=== PATIENT | male | born 1940 | race Caucasian/White ===

== ENCOUNTER → 2018-03-21 | Outpatient (CLI) | payer MEDICARE ==
[~2018-03-21] MED LIST: ASPEC325 PO; CLOP1TAB54 PO; DUTA0.5C PO; IRBE-37 PO; OMEP20CA59 PO
== END | disposition home or self-care (01) ==
LOC: C.PATHSPEC 16:55
PROVIDERS: ATTEND Dentist Endodontics
DX: K04.7 Periapical abscess without sinus (principal)

== ENCOUNTER 2024-06-11 10:48 | Inpatient (IN) ==
--- NOTE | 2024-06-11 11:15 | Emergency Department Note ---
Impression & Plan Cerebral edema, Glioblastoma, Acute left-sided weakness ED Provider Note NAME: KIMBERLY POPE AGE: 83 SEX: M : 1940 ARRIVES VIA: Ambulance INFORMANT: Patient, EMS ED PROVIDER(S): Tyron Robertson DO CHIEF COMPLAINT: Weakness HPI: The patient is an 83-year-old male who presented to the emergency department for an evaluation of weakness. The patient has a history of glioblastoma. He has had surgery in the past. Over the last few days the home occupational therapist as well as the patient's noticed that he has been having increasing weakness especially on the left side. The patient denies having any nausea or vomiting. He denies having any headache. His states that he cannot open up his left hand as well as he used to. The patient denies having any trauma. He does not take any blood thinners. He is currently not taking any steroids. ROS: See above HPI for pertinent positives & negatives. A total of 10 systems reviewed and were otherwise negative. PAST MEDICAL HISTORY: See Below PAST SURGICAL HISTORY: See Below FAMILY HISTORY: See Below SOCIAL HISTORY: See Below HOME MEDICATIONS: See Below ALLERGIES: See Below VITALS: See Below PHYSICAL EXAMINATION: GENERAL: The is awake to verbal commands. He is slow to answer questions and appears listless. EYES: The conjunctivae are clear. The pupils are round and reactive. EARS, NOSE, MOUTH AND THROAT: The nose is without any evidence of any deformity. Mucous membranes are dry. NECK: The neck is nontender and supple. RESPIRATORY: Normal respiratory effort is noted there is no evidence of wheezing rhonchi or rales CARDIOVASCULAR: Regular rate and rhythm noted there no murmurs rubs or gallops normal S1 normal S2. GASTROINTESTINAL: The abdomen is soft. Abdomen is nontender. MUSCULOSKELETAL/EXTREMITIES: There is no evidence of gross deformity full range of motion is noted in the hips and shoulders. SKIN: The skin is warm and dry. Trace pedal edema was noted bilaterally. NEUROLOGIC: Patient is awake to verbal commands. He is oriented to person place and time. There was a drift in the left upper extremity compared to the right. The patient is essentially flaccid in the left upper and left lower extremity. The patient has a left-sided facial droop with forehead sparing. Voice is soft but clear. MEDICAL DECISION MAKING: The patient is an 83-year-old male who has a history of glioblastoma who presented to the emergency department for weakness. The patient's had progressive left-sided weakness which is now worsened especially over the last 48 hours. The patient has not been on steroids recently. CT the brain was obtained and does appear to show cerebral edema associated with the patient's primary glioblastoma. I discussed the patient's laboratory and radiographic studies with him and his significant other. I discussed his condition with the on-call [facility]ist. I also discussed his case with his primary oncologist. At this time they feel the patient can be managed in our facility. He is not hypertensive. The patient was treated with IV steroids. He may require further radiation treatment. Triage Nursing notes reviewed. Prior medical records reviewed Vital Signs: reviewed and remarkable for no significant abnormalities Differential diagnosis: Infection, dehydration, metabolic abnormality, hypo/hyperglycemia, electrolyte disturbance, anemia, hypoxia, cardiac sources, intracerebral event, toxicologic, neurologic, as well as other pathologies. ER treatment provided: See below Diagnostics interpreted by me: ECG: EKG was obtained in the emergency department. My interpretation is normal sinus rhythm at 92 bpm. There is no ectopy. There is no acute ST segment abnormalities. This was compared to a tracing from April 23, 2024. No changes were noted. Cardiac Monitoring: An order was placed for continuous cardiac monitoring. The monitor shows a rate of 80 bpm with sinus rhythm. Laboratory studies: As stated above and show below. Imaging studies: See below. Radiographic imaging was reviewed by myself Consultation(s): I discussed this case with Dr. Jacobs [facility] I discussed this case with Dr. Love who is the patient's primary oncologist. Past Med/Surg History Problem List (Updated 06/11/24 @ 12:25 by Tyron Robertson DO) Acute left-sided weakness (Acute) Glioblastoma (Acute) Cerebral edema (Acute) Sensorineural hearing loss (SNHL) of both ears Encounter for pre-operative examination Medical History COVID-19 BPH (benign prostatic hyperplasia) Hearing deficit BL DEGROOT Transient global amnesia PER PT, REASON FOR PLAVIX HTN (hypertension) GERD (gastroesophageal reflux disease) Surgical History Hx of right cataract extraction History of colonoscopy W/ POLYPECTOMY History of tooth extraction History of tonsillectomy Family History Father Family hx of colon cancer Social History Smoking Status: Never smoker Second Hand Exposure: No; Do You Dip or Chew Tobacco: No; Hx Alcohol Use: Yes Alcohol type: beer, wine and hard liquor Hx Substance Use: No Preferred Language: Portuguese Communication Ability: Effective Grain Broker Required: No Beliefs That Will Affect Care: Hindu Current Living Situation: Spouse Feels Safe at Home: Yes Assistive Devices: Glasses and Hearing Aid - Bilateral Allergies Allergies Allergy/AdvReac Type Severity Reaction Status Date / Time Penicillins Allergy Unknown RASH Verified 05/19/24 09:45 Home Meds Home Medications Medication Instructions Recorded Confirmed dutasteride 0.5 mg capsule 0.5 mg PO QPM 01/10/19 05/12/24 vitamins A,C,B-innf-iboaqd 2,148 1 tab PO BID 01/10/19 05/12/24 mcg-113 mg-45 mg-17.4 mg tablet (PreserVision AREDS) levetiracetam 500 mg tablet 500 mg PO BID 04/25/24 04/25/24 (Keppra) melatonin 3 mg capsule 3 mg PO HS PRN 04/25/24 04/25/24 ondansetron 4 mg disintegrating 4 mg PO Q6H 04/25/24 04/25/24 tablet Results & Data (ED) Vital Signs Vital Signs - 24 hr 06/11/24 10:59 06/11/24 12:07 Temperature 37.5 C Temperature Source Oral Pulse Rate 91 H 80 Respiratory Rate 19 Respiratory Effort / Characteristics Non-Labored Spontaneous Respiratory Depth Normal Respiratory Pattern Regular Blood Pressure 132/84 Blood Pressure Mean 100 Pulse Oximetry 95 Oxygen Delivery Method Room Air Sepsis Recent Fever Within 48 Hours No Sepsis New/Unexplained Change in Mental Status N/A Sepsis Action Taken by Nursing No Action Required Home Medications Current Medication List: was personally reviewed by me Laboratory Data Attestation: I reviewed the patient's lab results. 06/11/24 11:00 06/11/24 11:00 Lab Results 11/06/24 11/06/24 11/06/24 Range/Units 11:00 11:05 11:40 WBC 9.39 (4.8-10.8) K/ul RBC 4.38 L (4.70-6.10) M/uL Hgb 13.8 L (14.0-18.0) g/dl Hct 40.1 L (42.0-52.0) % MCV 91.6 (80.0-100.0) fL MCH 31.5 (25.0-34.0) pg MCHC 34.4 (32.0-36.0) g/dL RDW Std Deviation 52.3 H (36.4-46.3) fL RDW Coeff of Ramiro 15.6 H (11.5-14.5) % Plt Count 265 (130-400) K/uL MPV 8.9 L (9.4-12.4) fL Immature Gran % (Auto) 0.9 % Neut % (Auto) 76.7 % Lymph % (Auto) 9.6 % Dukes % (Auto) 12.4 % Eos % (Auto) 0.1 % Baso % (Auto) 0.3 % Neut # (Auto) 7.21 H (1.40-6.50) K/uL Lymph # (Auto) 0.90 L (1.20-3.40) K/uL Dukes # (Auto) 1.16 H (0.11-0.59) K/uL Eos # (Auto) 0.01 (0.00-0.50) K/uL Baso # (Auto) 0.03 (0.00-0.20) K/uL Immature Gran # (Auto) 0.08 (0.01-0.20) K/uL PT 11.2 (9.0-12.0) Seconds INR 1.0 (0.9-1.1) APTT 29 (21-31) Seconds PTT Ratio 1.1 Sodium 137 (136-145) mmol/L Potassium 4.1 (3.5-5.1) mmol/L Chloride 102 (98-107) mmol/L Carbon Dioxide 27 (21-32) mmol/L Anion Gap 8 (3-11) BUN 10 (6-23) mg/dl Creatinine 0.88 (0.6-1.4) mg/dl Est Cr Clr Drug Dosing 63.7 ml/min eGFR 86.39 BUN/Creatinine Ratio 11.4 (10-20) Glucose 142 H (70-99(Fasting)) mg/dl Calcium 8.9 (8.6-10.3) mg/dl Magnesium 1.9 (1.7-2.4) mg/dl Total Bilirubin 0.8 (0.2-1.0) mg/dl AST 19 (13-39) U/L ALT 15 (7-52) U/L Alkaline Phosphatase 133 H (34-104) U/L Total Creatine Kinase 49 (30-223) U/L Troponin I High Sens 6.3 (0-20) pg/ml Total Protein 6.3 (6.0-8.3) gm/dl Albumin 3.8 (3.4-5.0) gm/dl Globulin 2.5 (2.5-4.0) gm/dl Albumin/Globulin Ratio 1.5 (0.9-2) TSH 1.692 (0.300-4.500) uIu/ml Random Cortisol 17.34 mcg/dl Urine Color Yellow Urine Appearance Clear (Clear) Urine pH 7.5 (4.5-7.5) Ur Specific [place] 1.016 (1.000-1.030) Urine Protein Trace H (Negative) Urine Glucose (UA) Negative (Negative) Urine Ketones Negative (Negative) Urine Blood Negative (Negative) Urine Nitrite Negative (Negative) Urine Bilirubin Negative (Negative) Urine Urobilinogen Positive H (Negative) Ur Leukocyte Esterase Trace H (Negative) Urine WBC (Auto) 0-5 (0-5) /hpf Urine RBC (Auto) 0-2 (0-2) /hpf U Hyaline Cast (Auto) 0-2 (0-2) /lpf U Epithel Cells (Auto) 0-2 (0-2) /hpf Urine Bacteria (Auto) None Seen (None Seen) SARS-CoV-2 (PCR) NEGATIVE (Negative) Influenza Type A (PCR) Negative (Neg) Influenza Type B (PCR) Negative (Neg) RSV (RT-PCR) Negative (Neg) Administered Medications Discontinued Medications Dexamethasone Sodium Phosphate (DexamethasonePf 10 Mg/Ml Vial) 10 mg IV NOW ONE Stop: 06/11/24 11:50 Last Admin: 06/11/24 11:53 Dose: 10 mg Documented By: [facility] Imaging Data Attestation: I personally reviewed and interpreted this imaging study as follows: My Impression: 1 view chest x-ray was obtained in the emergency department. My interpretation is no free air or definite infiltrate, final report below. Radiologist's Impression: Chest X-Ray 06/11/24 11:02 XR chest 1V portable HISTORY: 83 years-old Male weakness COMPARISON: 04/23/2024 TECHNIQUE: AP view of the chest FINDINGS: Cardiac silhouette is enlarged. No pneumothorax, pleural effusion or airspace consolidation. Bones appear grossly intact. IMPRESSION: No acute process ACT 112: Negative or not required by law. The above report was generated using voice recognition software. It may contain grammatical, syntax or spelling errors. Electronically signed by: Noah Guadarrama M.D. 06/11/2024 11:[address] 06/11/24 11:02 CT OF THE HEAD WITHOUT CONTRAST CLINICAL HISTORY: Altered mental status. Multifocal glioblastoma. COMPARISON STUDY: MRI of the brain March 18, 2024. Head CT April 23, 2024. CT DOSE: 625.8 mGy.cm TECHNIQUE: Helical axial images of the head were obtained without IV contrast. Automated exposure control was utilized for the study. A dose lowering technique was utilized adhering to the principles of ALARA. FINDINGS: No acute intracranial hemorrhage is present. A 3.3 x 2.1 cm oval- shaped hypodense focus within the right frontal lobe on image 22 of 32 favors a resection cavity. Edema within the right frontal lobe has increased in extent since CT of April 23, 2024. Mild mass effect with mild compression of the right lateral ventricle and minimal leftward midline shift is unchanged. The basal cisterns are patent. There is no evidence for herniation. A small hypodense focus within the left temporal lobe on image 18 of 32 has developed since prior CT. There are no findings to suggest acute dural sinus thrombosis or acute territorial infarct. Ventricular system is stable. There are no calvarial fractures. Right-sided craniotomy is unchanged in appearance. IMPRESSION: 1. No acute intracranial hemorrhage. 2. Status post right craniotomy with redemonstration of a right frontal resection cavity. Increase in right frontal lobe edema since prior head CT and interval development of hypodensity suggestive of vasogenic edema within the left temporal lobe. This interval change could represent disease progression however post treatment change could appear similar and continued imaging follow- up is recommended. No significant change in mass effect. ACT 112: Negative or not required by law. Electronically signed by: Pieter Calvo M.D. 06/11/2024 11:42 AM Discharge Plan Visit Data Chief Complaint: Testing Request Stated Complaint: TESTING REQUEST PER PCP ED Provider: Tyron Robertson Discharge Problem: Cerebral edema, Glioblastoma, Acute left-sided weakness Forms Stand Alone Forms: My [facility] [place] [employer] Prescriptions Prescriptions: No Action levetiracetam [Keppra] 500 mg tablet 500 mg PO BID melatonin 3 mg capsule 3 mg PO HS PRN ondansetron 4 mg tablet,disintegrating 4 mg PO Q6H dutasteride 0.5 mg Capsule 0.5 mg PO QPM PreserVision AREDS [id number] [id number] Tablet 1 tab PO BID Referrals Referrals: Robert Ortiz MD [Primary Care Provider] -
[2024-06-11 11:16] LABS: Basophils # (auto) 0.03 K/uL (0.00-0.20); Basophils % (auto) 0.3 %; Eosinophils # (auto) 0.01 K/uL (0.00-0.50); Eosinophils % (auto) 0.1 %; Hematocrit (blood only) 40.1 % (42.0-52.0); Hemoglobin 13.8 g/dl (14.0-18.0); Immature Granulocytes # (auto) 0.08 K/uL (0.01-0.20); Immature Granulocytes % (auto) 0.9 %; Lymphocytes % (auto) 9.6 %; Mean Corpuscular Hemoglobin 31.5 pg (25.0-34.0); Mean Corpuscular Hgb Conc 34.4 g/dL (32.0-36.0); Mean Corpuscular Volume 91.6 fL (80.0-100.0); Mean Platelet Volume 8.9 fL (9.4-12.4); Monocytes # (auto) 1.16 K/uL (0.11-0.59); Monocytes % (auto) 12.4 %; Neutrophils # (auto) 7.21 K/uL (1.40-6.50); Neutrophils % (auto) 76.7 %; Platelet Count 265 K/uL (130-400); RDW Coefficient of Variation 15.6 % (11.5-14.5); RDW Standard Deviation 52.3 fL (36.4-46.3); Red Blood Count 4.38 M/uL (4.70-6.10); White Blood Count 9.39 K/ul (4.8-10.8)
--- NOTE | 2024-06-11 11:28 | XRay Report ---
XR chest 1V portable HISTORY: 83 years-old Male weakness COMPARISON: 04/23/2024 TECHNIQUE: AP view of the chest FINDINGS: Cardiac silhouette is enlarged. No pneumothorax, pleural effusion or airspace consolidation. Bones ap pear grossly intact. IMPRESSION: No acute process ACT 112: Negative or not required by law. The above report was generated using voice recognition software. It may contain grammatical, syntax o r spelling errors. Electronically signed by: Noah Guadarrama M.D. 06/11/2024 11:26 AM
--- NOTE | 2024-06-11 11:45 | CT Scan Report ---
CT OF THE HEAD WITHOUT CONTRAST CLINICAL HISTORY: Altered mental status. Multifocal glioblastoma. COMPARISON STUDY: MRI of the brain March 18, 2024. Head CT April 23, 2024. CT DOSE: 625.8 mGy.cm TECHNIQUE: Helical axial images of the head were obtained without IV contrast. Automated exposure con trol was utilized for the study. A dose lowering technique was utilized adhering to the principles o f ALARA. FINDINGS: No acute intracranial hemorrhage is present. A 3.3 x 2.1 cm oval-shaped hypodense focus wit hin the right frontal lobe on image 22 of 32 favors a resection cavity. Edema within the right fronta l lobe has increased in extent since CT of April 23, 2024. Mild mass effect with mild compression of the right lateral ventricle and minimal leftward midline shift is unchanged. The basal cisterns a re patent. There is no evidence for herniation. A small hypodense focus within the left temporal lobe on image 18 of 32 has developed since prior CT. There are no findings to suggest acute dural sinus t hrombosis or acute territorial infarct. Ventricular system is stable. There are no calvarial fracture s. Right-sided craniotomy is unchanged in appearance. IMPRESSION: 1. No acute intracranial hemorrhage. 2. Status post right craniotomy with redemonstration of a right frontal resection cavity. Increase in right frontal lobe edema since prior head CT and interval development of hypodensity suggestive of v asogenic edema within the left temporal lobe. This interval change could represent disease progressio n however post treatment change could appear similar and continued imaging follow-up is recommended. No significant change in mass effect. ACT 112: Negative or not required by law. Electronically signed by: Pieter Calvo M.D. 06/11/2024 11:42 AM
[2024-06-11 11:46] LABS: Albumin Globulin Ratio 1.5 (0.9-2); Albumin Level 3.8 gm/dl (3.4-5.0); BUN Creatinine Ratio 11.4 (10-20); Bilirubin,Total 0.8 mg/dl (0.2-1.0); Calcium 8.9 mg/dl (8.6-10.3); Creatinine Clr Calc Pharmacy 63.7 ml/min; Globulin 2.5 gm/dl (2.5-4.0); Magnesium 1.9 mg/dl (1.7-2.4); Potassium 4.1 mmol/L (3.5-5.1); Total Protein 6.3 gm/dl (6.0-8.3)
[2024-06-11 11:49] LABS: Partial Thromboplastin Ratio 1.1; Partial Thromboplastin Time 29 Seconds (21-31); Prothrombin Time 11.2 Seconds (9.0-12.0)
[2024-06-11 11:52] LABS: Troponin I High Sensitivity 6.3 pg/ml (0-20)
[2024-06-11] MEDS: dexAMETHasone**PF** 10 MG/ML VIAL IV ONE (11:53)
[2024-06-11 11:59] LABS: Thyroid Stimulating Hormone 1.692 uIu/ml (0.300-4.500)
[2024-06-11 12:00] LABS: Influenza A virus by PCR Negative (Neg); Influenza B virus by PCR Negative (Neg); RSV by PCR Negative (Neg); SARS CoV2 RNA(COVID-19) Ceph NEGATIVE (Negative)
[2024-06-11 12:02] LABS: Appearance Urine Clear (Clear); Bacteria Urine Automated None Seen (None Seen); Bilirubin Urine Negative (Negative); Blood Urine Negative (Negative); Cast Urine Automated 0-2 /lpf (0-2); Color Urine Yellow; Epithelial Cell Urine Auto 0-2 /hpf (0-2); Glucose Urine UA Negative (Negative); Ketones Urine Negative (Negative); Leukocyte Esterase Urine Trace (Negative); Nitrite Urine Negative (Negative); Protein Urine Trace (Negative); RBC Urine Automated 0-2 /hpf (0-2); Specific Gravity Urine 1.016 (1.000-1.030); Urobilinogen Urine Positive (Negative); WBC Urine Automated 0-5 /hpf (0-5); pH Urine 7.5 (4.5-7.5)
--- NOTE | 2024-06-11 12:35 | History & Physical Report ---
Date of Service June 11, 2024 Assessment & Plan (1) Cerebral edema: Plan: History of Glioblastoma s/p right Frontal craniotomy for removal biopsy 04/03/24 S/p palliative radiation therapy completed 05/26/24 - CT on admission showed right frontal lobe edema and left temporal lobe vasogenic edema - ER doctor discussed with Dr. Garfield Love, patient's oncologist with [facility] recommended MRI and IV Decadron - MRI ordered - IV Decadron 10 mg daily - dysphagia screen ordered given weakness - monitor on telemetry (2) BPH (benign prostatic hyperplasia): Plan: possible component of neurogenic bladder as well - continue home medications - dutasteride and tamsulosin - bladder scan and straight cath prn if scan >350 mL (3) HTN (hypertension): Plan: Stable Currently not on any medications at home, recently d/c (4) Glioblastoma: Plan: see cerebral edema - palliative radiation treatment completed 05/26 - spoke with Dr. Dipak Love who stated patient will not be a candidate for further radiation at this time - continue Keppra Plan Chronic stable diagnoses: GERD - continue famotidine VTE ppx: Lovenox Q24h Diet: regular Code status: DNR/DNI Dispo: PCU/tele; PT/OT ordered to evaluate Admission and Anticipated Discharge Date Admission Date: 06/11/24 History of Present Illness Chief Complaint: weakness Primary Care Provider: Robert Ortiz MD Patient is an 83-year-old male with past medical history of glioblastoma s/p radiation and right frontal craniotomy, BPH, hypertension. Patient presents today due to left-sided weakness that has been ongoing for the past week. He also stated that he has had vision and a cough for the past few weeks. Patient's was seen with him at bedside. She provided most of his history as patient was tired. She stated that he had a brain biopsy 04/[address] Garfield Love at [facility], he has been doing well since the biopsy. He just finished radiation therapy 05/[address] Dipak Love from [facility]. About 1 week ago he started with left-sided weakness and it has progressively been getting worse since. Last night he was unable to ambulate by himself. She had to have a friend help him to the bedroom. She also stated that he has had some mild ankle swelling for the past few weeks. He has had home health with PT and OT weekly. he was to have an MRI on the . Patient denies fever, chills, headache, dizziness, lightheadedness, rhinorrhea, sore throat, dyspnea, dyspnea on exertion, chest pain, abdominal pain, nausea, vomiting, diarrhea, constipation, numbness, tingling. He lives at home with his . He does not smoke nicotine or drink alcohol. He denies past history of diabetes, VTE, clotting disorders, COPD, asthma, kidney disease. He does not use oxygen at baseline. He took all of his home medications this morning. He wishes to be DNR/DNI at this time. Allergies Allergy/AdvReac Type Severity Reaction Status Date / Time Penicillins Allergy Unknown RASH Verified 05/19/24 09:45 Home Medications Medication Instructions Recorded Confirmed Type dutasteride 0.5 mg capsule 0.5 mg PO QPM 01/10/19 06/11/24 History (Avodart) vitamins A,C,J-lnkw-iylsgg 2,148 1 tab PO BID 01/10/19 06/11/24 History mcg-113 mg-45 mg-17.4 mg tablet (PreserVision AREDS) levetiracetam 500 mg tablet 500 mg PO BID 04/25/24 06/11/24 History (Keppra) melatonin 3 mg capsule 3 mg PO HS PRN Sleep 04/25/24 06/11/24 History famotidine 20 mg tablet 20 mg PO BID 06/11/24 06/11/24 History tamsulosin 0.4 mg capsule 0.4 mg PO HS 06/11/24 06/11/24 History Past Med/Surg History Problem List (Updated 06/11/24 @ 12:59 by Cuca Barrett PA-C) BPH (benign prostatic hyperplasia) HTN (hypertension) Acute left-sided weakness (Acute) Glioblastoma (Acute) Cerebral edema (Acute) Sensorineural hearing loss (SNHL) of both ears Encounter for pre-operative examination Medical History COVID-19 BPH (benign prostatic hyperplasia) Hearing deficit BL DEGROOT Transient global amnesia PER PT, REASON FOR PLAVIX HTN (hypertension) GERD (gastroesophageal reflux disease) Surgical History Hx of right cataract extraction History of colonoscopy W/ POLYPECTOMY History of tooth extraction History of tonsillectomy Family History Father Family hx of colon cancer Social History Smoking Status: Never smoker Second Hand Exposure: No; Do You Dip or Chew Tobacco: No; Hx Alcohol Use: Yes Alcohol type: beer, wine and hard liquor Hx Substance Use: No Preferred Language: Jordanian Communication Ability: Effective Corporate Quality Assurance Manager Required: No Beliefs That Will Affect Care: Sabianism Current Living Situation: Spouse Feels Safe at Home: Yes Assistive Devices: Glasses and Hearing Aid - Bilateral Review of Systems Review of Systems: see HPI Physical Exam Physical Exam: The patient is tired, alert and oriented 3, well developed and well nourished, normocephalic and atraumatic, in no acute distress. Non-toxic appearing. HEENT- EOMI, mucous membranes moist. Hearing grossly intact. CN intact. Heart- normal S1 and S2. No murmurs, rubs or gallops. Lungs- clear bilaterally, no respiratory distress, no accessory muscle use. Abdomen- normal bowel sounds and soft. No ascites noted. Non-tender. MSK - 4/5 strength right extremities. 0/5 strength left extremities; unable to lift LE or UE. Sensation intact. Extremities- no clubbing, cyanosis. Mild edema of b/l ankles. Rheumatologic-decreased range of motion. Results & Data Results & Data Vital Signs (Past 12 Hours) Vital Signs Temp Pulse Resp BP Pulse Ox O2 Del Method 06/11/24 12:07 80 06/11/24 10:59 37.5 C 91 H 19 132/84 95 Room Air Code Status & VTE Plan Code Status DNR/DNI VTE Prophylaxis Plan VTE Prophylaxis will be ordered: Yes Supervising Physician Co-Signing Physician Notes Patient seen and examined, chart reviewed, case discussed with Cuca Hansen PA-C and I agree with the assessment and plan as above except as otherwise noted Labs and images reviewed 83-year-old male with a history of glioblastoma s/p craniotomy 03/2024 and palliative radiation completed 05/2024 presents with worsened left-sided deficits in the last 48 hours with a background gradual loss of strength. CT is with evidence of vasogenic edema? Whether this is related to his recent treatments. Case was discussed with [facility] Dr. Love in the ER, patient was recommended to follow-up with an MRI and to have steroids continued at this time. follows w Dr. William Ortiz [facility] and Dr. Love [facility] Oncology. No evidence of bleeding. At bedside visit patient has almost no activation of strength to left recruiting operations consultant, left elbow flexion, left shoulder flexion, left hip flexion, left ankle dorsiflexion/plantarflexion. 5/5 strength on the right although fatigues easily. Patient has had a history of polyuria for several weeks but denies dysuria or pain. UA does not appear infected, postvoid bladder scan has been ordered to evaluate for retention. No fevers or chills. Has had a cough for the last few days although no fever/chills. Quad screen was negative, expanded to [employer]. Differential includes worsened deficits from infectious causes, edema, CVA, and malignancy. MRI with and without contrast is ordered. Of note some confusion regarding patient's craniotomy. reports the patient has never had any type of skull or brain surgery just had a biopsy, clarified that a small portion of the skull was removed to perform the biopsy and imaging does show a right craniotomy.patient and his reports that they would be interested in hearing more about hospice services, but would like further investigation into underlying causes and imaging and further evaluation as note d. Agree with above. PG Care Time/CCT Total # of Minutes Spent Total Time Spent with Patient: Total time spent is greater than 50% in coordination of care (as documented) at patient's floor/unit and/or counseling patient: Coding Level of Care Code 35808 INT INP/OBS CARE 2/55MIN Diagnoses Cerebral edema G93.6 BPH (benign prostatic hyperplasia) N40.0 HTN (hypertension) I10 Glioblastoma C71.9
[2024-06-11 14:22] LABS: Adenovirus PCR Not Detected (NotDetected); Bordetella parapertussis PCR Not Detected (NotDetected); Bordetella pertussis PCR Not Detected (NotDetected); Chlamydia pneumoniae PCR Not Detected (NotDetected); Coronavirus 229E PCR Not Detected (NotDetected); Coronavirus CoV-2 (COVID19)PCR Not Detected (NotDetected); Coronavirus HKU1 PCR Not Detected (NotDetected); Coronavirus NL63 PCR Not Detected (NotDetected); Coronavirus OC43PCR Not Detected (NotDetected); Human Metapneumovirus PCR Not Detected (NotDetected); Influenza A PCR Not Detected (NotDetected); Influenza B PCR Not Detected (NotDetected); Mycoplasma pneumoniae PCR Not Detected (NotDetected); Parainfluenza Virus 1 PCR Not Detected (NotDetected); Parainfluenza Virus 2 PCR Not Detected (NotDetected); Parainfluenza Virus 3 PCR Not Detected (NotDetected); Parainfluenza Virus 4 PCR Not Detected (NotDetected); Respiratory Syncytial VirusPCR Not Detected (NotDetected); Rhinovirus/Enterovirus PCR Not Detected (NotDetected)
[2024-06-11] MEDS ORDERED: POLYETHYLENE (MIRALAX) 17 GM PACK PO PRN (14:44)
--- NOTE | 2024-06-11 15:41 | Electrocardiogram Report ---
Test Reason : Blood Pressure : */* mmHG Vent. Rate : 92 BPM Atrial Rate : 92 BPM P-R Int : 148 ms QRS Dur : 80 ms QT Int : 340 ms P-R-T Axes : 15 12 54 degrees QTcB Int : 420 ms Poor data quality, interpretation may be adversely affected Normal sinus rhythm Poor R wave progression, consider anterior IL vs. lead placement vs. LVH Abnormal ECG When compared with ECG of 23-Apr-2024 10:21, No significant change was found Confirmed by Tyron Gipson ([id number]) on 06/11/2024 3:40:43 PM Referred By: Garfield Love Confirmed By: Tyron Gipson
[2024-06-11] MEDS: GADOBUTROL 65ML VIAL IV ONE (15:52)
[2024-06-11] MEDS: ENOXAPARIN INJ 40 MG/0.4 ML SYR SQ SCH (17:52)
[2024-06-11] MEDS: FINASTERIDE 5 MG TAB PO SCH (20:50)
[2024-06-11] MEDS: TAMSULOSIN HCL 0.4 MG CAP PO SCH (20:50)
[2024-06-11] MEDS: FAMOTIDINE 20 MG TAB PO SCH (20:51)
[2024-06-11] MEDS: levETIRAcetam 500 MG TAB PO SCH (20:51)
--- NOTE | 2024-06-11 21:06 | Magnetic Resonance Report ---
MRI BRAIN WITH and WITHOUT CONTRAST TECHNIQUE: An MRI examination of the brain was performed utilizing sagittal and axial T1-weighted images as well as axial T2-weighted, FLAIR, gradient echo and diffusion-weighted images. Postcontrast T1-weighted images were also acquired in axial and sagittal planes. IV CONTRAST: 7.5 mL of Gadobuterol was intravenously administered. INDICATION: Headaches COMPARISON: CT brain April 23, 2024 FINDINGS: Centered in the right frontal lobe, there is a predominantly peripherally and heterogeneously enhancing intra-axial mass measuring up to 5.6 x 5.0 x 5.9 cm (AP x TV x CC) with medial extension across the midline to the left cerebral hemisphere frontal lobe. There is a small enhancing mass in the left frontal white matter just superiorly to the anterior horn of the left lateral ventricle measuring 1.5 cm which may represent medial extension of the dominant mass. Just posterolaterally to this dominant mass, there is a 1.4 cm peripherally enhancing lesion in the posterior right frontal lobe. There is diffusion restriction to this dominant mass. Also small component of intrinsically T1 hyperintense material and the susceptibility artifact noted There is an additional peripherally enhancing lesion in the left frontal operculum measuring 1.7 cm. There is appreciable vasogenic edema surrounding this finding with associate mass effect characterized by 1.0 cm leftward shifting of the midline structures. Partially effacement of the right lateral ventricle Prior right frontal craniotomy changes. The cerebellar tonsils are normal in position. The pituitary gland is not enlarged. The major arterial vascular structures of the skull base are patent. No intraorbital soft tissue mass lesion is observed. Cataract surgeries the visualized paranasal sinuses and mastoids are predominantly aerated. IMPRESSION: Large intra-axial mass centered in the right frontal lobe with aggressive features including appreciable vasogenic edema, predominantly peripheral and heterogeneous enhancement with suggested central necrosis and internal hemorrhage with crossing of the midline into the contralateral left frontal cerebrum. Additional lesions detected posterolaterally within the right frontal lobe and in the left frontal operculum as above. There is diffusion restriction to this dominant mass which suggests high cellularity. Superimposed infection/abscess not entirely excluded in the right clinical context. Please correlate with histological results however consideration may include glioblastoma multiforme. Less likely considerations may include a lymphoma as well as metastasis. Electronically signed by Rohan Espinoza 06-11-2024 4:45 PM
--- OUTSIDE RECORDS SUMMARY | 2024-06-11 21:21 | External Medical Summary | Continuity of Care Document ---
Author Name Unknown Organization [address] Address [address] [place] [phone] Care Team Providers Care Emergency Veterinary Technician Name Role Phone Robert Ortiz Primary Care Physician [phone] [id number] Date(s): 05/26/24 - 05/26/[address] [facility] [address] [facility], [address] [place] [address] [phone] Encounter Diagnosis Edema leg(Discharge Diagnosis) - 05/26/24 Encounter for medication review(Discharge Diagnosis) - 05/26/24 Glioblastoma(Discharge Diagnosis) - 05/26/24 BPH associated with nocturia(Discharge Diagnosis) - 05/26/24 Incontinence(Discharge Diagnosis) - 05/26/24 Discharge Disposition: Home or Self Care Attending Physician: Carie Jett DO, Mariana Annette Referring Physician: MD Ortiz Michael P Allergies, Adverse Reactions, Alerts Substance Criticality Severity Reaction Reaction Severity Status penicillins unknown Active Assessment and Plan Extracted from: Title:TeleHealth Visit Note Author:Cooper Jett DO, Mariana Annette Date:05/26/24 1.Edema leg Likely dependent edema, although unable to perform exam Advised compression and elevation of legs, walking as much as tolerated. 2.BPH associated with nocturia Not al goal Continue dutasteride, trial of flomax0.4mg daily, advised to monitor BP and for lightheadedness. Requests urology referral and this was placed 3.Incontinence as above 4.Encounter for medication review Current medications are appropriate and medication list reconciled Since he is mainly on a palliative course now, would likely keep him off plavixat this time. BP is being monitored by home nurse, if it starts rising advised to let us know. 5.Glioblastoma He is done with palliative radiation, management per oncology. Immunizations Given and Recorded Vaccine Date Status Refusal Reason SARS-CoV-2 mRNA (Pfizer 12+) bivalent 05/21/23 Rec orded RSV Vaccine Unspecified 05/14/23 Recorded influenza virus vaccine, inactivated 05/07/23 Austen rded influenza virus vaccine, inactivated 05/12/22 Give n influenza virus vaccine, inactivated 04/28/21 Give n influenza virus vaccine, inactivated 04/23/20 Give n influenza virus vaccine, inactivated 05/01/19 Give n influenza virus vaccine, inactivated 05/13/18 Give n influenza virus vaccine, inactivated 05/21/17 Give n influenza virus vaccine, inactivated 05/12/16 Give n influenza virus vaccine, inactivated 05/24/15 Give n influenza virus vaccine, inactivated 04/29/14 Give n influenza virus vaccine, inactivated 05/28/13 Give n influenza virus vaccine, inactivated 06/17/12 Give n SARS-CoV-2 mRNA-1273 (6y+ bivalent) 1 01/04/23 Rec orded SARS-CoV-2 mRNA-1273 (6y+ bivalent) 2 04/17/22 Rec orded SARS-CoV-2 (COVID-19) mRNA-1273 vaccine 11/04/21 R ecorded SARS-CoV-2 (COVID-19) mRNA-1273 vaccine 06/10/21 R ecorded SARS-CoV-2 (COVID-19) mRNA-1273 vaccine 3 10/03/20 Recorded SARS-CoV-2 (COVID-19) mRNA-1273 vaccine 4 08/29/20 Recorded zoster vaccine, inactivated 01/17/19 Recorded zoster vaccine, inactivated 10/31/18 Recorded zoster vaccine, inactivated 5 10/31/18 Recorded hepatitis A adult vaccine 07/02/18 Given hepatitis A adult vaccine 12/17/13 Given tetanus/diphtheria/pertuss, acel (Tdap) 07/02/18 G iven tetanus/diphtheria/pertuss, acel (Tdap) 03/22/12 G iven pneumococcal 13-valent vaccine 06/09/15 Given pneumococcal 23-valent vaccine 06/18/13 Given zoster vaccine live 08/06/09 Recorded 1Result Comment: 2023-04-30: Historical information-source unspecified 2Result Comment: 2022-05-31: Historical information-source unspecified 3Result Comment: 2020-12-02: Historical information-source unspecified 4Result Comment: 2020-12-02: Historical information-source unspecified 5Result Comment: 2019-01-17: Historical information-source unspecified Medications dutasteride 0.5 mg oral capsule Start: 07/25/23 4:11:00 PM EST, See Instructions, Disp# 90 cap, Refills: 3, TAKE ONE CAPSULE BY MOUTH EVERY DAY, Pharmacy: [facility] Start Date: 07/25/23 Status: Ordered famotidine 20 mg oral tablet Start: 04/14/24 10:42:00 AM EDT, 28 tab, 0 Refill(s) Start Date: 04/14/24 Status: Ordered Flomax 0.4 mg oral capsule Start: 05/26/24 1:26:00 PM EDT, 1 cap, PO, Daily, Disp# 30 cap, at bedtime, Pharmacy: [facility] Start Date: 05/26/24 Status: Ordered levETIRAcetam 500 mg oral tablet Start: 04/14/24 10:42:00 AM EDT, 60 tab, 0 Refill(s) Start Date: 04/14/24 Status: Ordered melatonin 3 mg oral tablet Start: 04/14/24 10:43:00 AM EDT, 1 tab, PO, qhs, PRN: Insomnia Start Date: 04/14/24 Status: Ordered PreserVision AREDS 2 oral capsule Start: 03/01/20 3:17:00 PM EDT, 1 cap, PO, Daily Start Date: 03/01/20 Status: Ordered Problem List Condition Confirmation Course Effective Dates Status Health atus Informant Patient has active power of cook specialty foreign food for health care Confirmed Active Serrated adenoma of colon Confirmed Active Generalized weakness Confirmed Active Basal cell carcinoma 1 Confirmed Active Arthritis of both feet Confirmed Active Tailor's bunion of both feet Confirmed Active BPH Confirmed Active Callus Confirmed Active Fear of flying Confirmed Active Glioblastoma Confirmed Active Global amnesia Confirmed Active Hearing impairment Confirmed Active Hypertension Confirmed Active Incontinence Confirmed Active BPH associated with nocturia Confirmed Active Dry skin Confirmed Active 1nasal tip Diagnosis Diagnosis Type Effective Dates Health Status Clinical Service Informant Incontinence Discharge Diagnosis 05/26/24 Non-Specified BPH associated with nocturia Discharge Diagnosis 05/26/24 Non-Specified Edema leg Discharge Diagnosis 05/26/24 Non-Specified Encounter for medication review Discharge Diagnosis 05/26/24 Non-Specified Glioblastoma Discharge Diagnosis 05/26/24 Non-Specified Procedures Procedure Date Related Diagnosis Body Site Status Colonoscopy 1, 2 09/12/23 Complete d Mohs micrographic surgery 12/26/22 Completed Shave biopsy 11/08/22 Completed Cataract surgery 2018 Comple maciej Colonoscopy 2012 Completed 1- Diverticulosis in the sigmoid colon and in the descending colon. - The examination was otherwise normal. - No specimens collected. 2- No repeat colonoscopy due to age. 3bilateral cataract surgery 4Repeat in 5 years Social History Social History Type Response Tobacco Former smoker, Cigar ettes 1 Smoking Status Never smoked cigaret areli Sex Male Sex Representation Male (finding) 1Quit smoking 41 years ago. [facility] Outpt Note * Carie Jett DO, Mariana Annette: PERFORM Event Display: [facility] Outpt Note Authored Date: [id number] TeleHealth Visit Note I have confirmed the patients name and date of . The patient has consented to this service,and I have advised the patient that this is a billable visit for which they may be subject to a copay. The patient initiated this visit after they were informed of the availability of TeleHealth for this medically necessary visit. I am located at my office. The patient is located at home. This visit was conducted via live audio/video technology via [employer]. History of Present Illness Presents via telehealth to discuss some questions He is undergoing palliative radiation treatment for glioblastoma He is very sleepy and prefers for his Ashlyn to speak with me Wants to review medications - no longer on dexamethasone, alprazolam, cipro, plavix, hydroxyzine, miconazole, mirtazapine, zofran, senna - stopped irbesartan due to hypotension (BP this AM 118/70) - plavixwas stopped prior to brain biopsy and not re-started(No hx ofCAD or CVA so it is reasonable to keep him off, possible remote hx of TIA?/global amnesia) - he is onlyon dutasteride, famotidine, keppra, melatonin, AREDS Swollen ankles - walks around the house, trying to take outside walks - wondering if she should raise his feet more Incontinent at night - worsened over the past month - has been on dutasteride for the past 2 months w/o improvement - states he's up all night going to the bathroom, and sometimes does not make it, wears depends Physical Exam General: _Alert and oriented, No acute distress, somnolent Psych: Mood-affect congruence. Speech is of normal pace and content Assessment/Plan 1.Edema leg Likely dependent edema, although unable to perform exam Advised compression and elevation of legs, walking as much as tolerated. 2.BPH associated with nocturia Not al goal Continue dutasteride, trial of flomax0.4mg daily, advised to monitor BP and for lightheadedness. Requests urology referral and this was placed 3.Incontinence as above 4.Encounter for medication review Current medications are appropriate and medication list reconciled Since he is mainly on a palliative course now, would likely keep him off plavixat this time. BP is being monitored by home nurse, if it starts rising advised to let us know. 5.Glioblastoma He is done with palliative radiation, management per oncology. Attestation Time spent: Pre-visit planning: _8 [id number] visit: _25 Post-visit (orders/documentation/coordination of care):5 Total visit time: _38 Problem List/Past Medical History Ongoing Arthritis of both feet Basal cell carcinoma BPH BPH associated with nocturia Callus Dry skin Fear of flying Generalized weakness Glioblastoma Global amnesia Hearing impairment Hypertension Incontinence Patient has active power of cook specialty foreign food for health care Serrated adenoma of colon Tailor's bunion of both feet Resolved Annual physical exam Benign essential HTN Colonoscopy Folliculitis Seborrheic keratoses Tick bite of neck Zoster vaccine Procedure/Surgical History Colonoscopy| Service Date: 09/12/2023Mohs micrographic surgery| Service Date: 12/26/2022Shave biopsy| Service Date: 11/08/2022ataract surgery| Service Date: 2018Colonoscopy| Service Date: 2012 Medications dutasteride(dutasteride 0.5 mg oral capsule), See Instructions, 3 refills famotidine(famotidine 20 mg oral tablet) levETIRAcetam(levETIRAcetam 500 mg oral tablet) melatonin(melatonin 3 mg oral tablet), 3 mg= 1 tab, PO, qhs, PRN multivitamin with minerals(PreserVision AREDS 2 oral capsule), 1 cap, PO, Daily tamsulosin(Flomax 0.4 mg oral capsule), 0.4 mg= 1 cap, PO, Daily Allergies penicillinsunknown Social History Smoking Status Never smoked cigarettes Exercise - Regular exercise Times per week:Daily - Comments: Gym 4 days a week and walks dog 4-5 miles every day Home/Environment Lives with:Spouse Other risks in environment:Pets/Animal exposure - Comments: Single family home Substance Abuse - Denies Substance Abuse Tobacco Use:Former smoker Type:Cigarettes - Comments: Quit smoking 41 years ago. Family History Cancer of colon: Father. Hypertension: Mother. Health Status Family Member(s) Family Member(s) Relationship: Father, Age: 101 Years Relationship: Mother, Age: Unknown Immunizations Vaccine Date Status SARS-CoV-2 mRNA (Pfizer 12+) bivalent 05/21/2023 Recorded RSV Vaccine Unspecified 05/14/2023 Recorded influenza virus vaccine, inactivated 05/07/2023 Recorded SARS-CoV-2 mRNA-1273 (6y+ bivalent) 01/04/2023 Recorded Comments : 2023-04-30: Historical information-source unspecified influenza virus vaccine, inactivated 05/12/2022 Given SARS-CoV-2 mRNA-1273 (6y+ bivalent) 04/17/2022 Recorded Comments : 2022-05-31: Historical information-source unspecified SARS-CoV-2 (COVID-19) mRNA-1273 vaccine 11/04/2021 Recorded SARS-CoV-2 (COVID-19) mRNA-1273 vaccine 06/10/2021 Recorded influenza virus vaccine, inactivated 04/28/2021 Given SARS-CoV-2 (COVID-19) mRNA-1273 vaccine 10/03/2020 Recorded Comments : 2020-12-02: Historical information-source unspecified SARS-CoV-2 (COVID-19) mRNA-1273 vaccine 08/29/2020 Recorded Comments : 2020-12-02: Historical information-source unspecified influenza virus vaccine, inactivated 04/23/2020 Given influenza virus vaccine, inactivated 05/01/2019 Given zoster vaccine, inactivated 01/17/2019 Recorded zoster vaccine, inactivated 10/31/2018 Recorded zoster vaccine, inactivated 10/31/2018 Recorded Comments : 2019-01-17: Historical information-source unspecified hepatitis A adult vaccine 07/02/2018 Given tetanus/diphtheria/pertuss, acel (Tdap) 07/02/2018 Given influenza virus vaccine, inactivated 05/13/2018 Given influenza virus vaccine, inactivated 05/21/2017 Given influenza virus vaccine, inactivated 05/12/2016 Given pneumococcal 13-valent vaccine 06/09/2015 Given influenza virus vaccine, inactivated 05/24/2015 Given influenza virus vaccine, inactivated 04/29/2014 Given hepatitis A adult vaccine 12/17/2013 Given pneumococcal 23-valent vaccine 06/18/2013 Given influenza virus vaccine, inactivated 05/28/2013 Given influenza virus vaccine, inactivated 06/17/2012 Given tetanus/diphtheria/pertuss, acel (Tdap) 03/22/2012 Given tetanus/diphtheria/pertuss, acel (Tdap) - Not Given Comments : Medication Not Available zoster vaccine live 2009 Recorded Recommendations Health Maintenance Pending(in the next year) OverDue Medicare Annual Wellness Visit due05/31/23and every 1year Adult Influenza Vaccine due02/03/24and every 1year Due Adult Social Determinants of Health Screening due05/26/24Unknown Frequency Due In Future Body Mass Index not due until04/30/25and every 366day Satisfied(in the past 1 year) Satisfied Body Mass Index on04/29/24.Satisfied by JELENA Harper Kathryn Electronic Signature on File Electronically Reviewed/Signed by: Ashlee Jett DO Author Signature Dt/Tm:05/26/2024 01:49 PM Department of Family Medicine MAF Patient Care team information Care Team Personnel Name: MD Angel, Robert Butts Position: Physician - Internal Med Member Role: Primary Care Provider Address: [address] [facility] [address] [place] [address] [place] Name: Cody Lindquist MD, Otis Position: Resident Member Role: Lifetime Relationship Address: [address] [facility] [address] [place] [address] Care Team Related Persons Name: ASHLYN ESPANA"
--- OUTSIDE RECORDS SUMMARY | 2024-06-11 21:21 | External Medical Summary | Continuity of Care Document ---
Author Name Unknown Organization [address] Address [address] [place] [address] [place], [place] [phone] Care Team Providers Care Insurance Counselor Name Role Phone AngelRobert wilson Benjamín Primary Care Physician [phone] Encounter [facility] [id number] Date(s): 05/15/24 - 05/15/[address] [place] [facility] [address] [facility], [address] [place] [address] [phone] Encounter Diagnosis Hypertension(Discharge Diagnosis) - 05/15/24 Discharge Disposition: Home or Self Care Attending Physician: DO Toure Franklin J Referring Physician: DO Toure Franklin J Allergies, Adverse Reactions, Alerts Substance Criticality Severity Reaction Reaction Severity Status penicillins unknown Active Assessment and Plan Extracted from: Title:Office Visit Note Author:DO Gonzalez Clair e S Date:05/15/24 1.Hypertension Chronic condition not at goal/exacerbated/progressive/side effects of treatment Goal: Resolve hypotension Data: _ Plan: Plan to continue to hold irbesartan. Will f/u with blood pressure readings next week. If significantly elevated prior to that will call office sooner. If elevated consider re-started irbesartan, perhaps as a lower dose. Immunizations Given and Recorded Vaccine Date Status [...] 5Result Comment: 2019-01-17: Historical information-source unspecified Medications ALPRAZolam 0.5 mg oral tablet, disintegrating Start: 02/29/24 3:34:00 PM EDT, 0.5 tab, PO, Daily, Disp# 30 tab, Refills: 0, PRN: anxiety, [facility] Start Date: 02/29/24 Status: Ordered ciprofloxacin Start: 04/29/24 2:43:00 PM EDT, 500, PO, bid Start Date: 04/29/24 Status: Ordered clopidogrel 75 mg oral tablet Start: 04/24/23 2:03:00 PM EDT, 1 tab, PO, Daily, Disp# 90 tab, Refills: 3, Pharmacy: [facility] Start Date: 04/24/23 Status: Ordered dexAMETHasone 2 mg oral tablet Start: 04/14/24 10:41:00 AM EDT, 40 tab, 0 Refill(s) Start Date: 04/14/24 Status: Ordered dexAMETHasone 2 mg oral tablet Start: 04/29/24 3:31:00 PM EDT, See Instructions, Disp# 40 tab, Take 2 tablets by mouth twice a day for 4 days, then 1 tablet three times per day for 4 days, the 1 tablets two times per day for 4 days, then stop, Pharmacy: [facility]/pharmacy #[id number] Start Date: 04/29/24 Status: Ordered dexAMETHasone 4 mg oral tablet Start: 03/24/24 1:49:00 PM EDT, 1 tab Start Date: 03/24/24 Status: Ordered dutasteride 0.5 mg oral capsule Start: 07/25/23 4:11:00 PM EST, See Instructions, Disp# 90 cap, Refills: 3, TAKE ONE CAPSULE BY MOUTH EVERY DAY, Pharmacy: [facility] Start Date: 07/25/23 Status: Ordered famotidine 20 mg oral tablet Start: 04/14/24 10:42:00 AM EDT, 28 tab, 0 Refill(s) Start Date: 04/14/24 Status: Ordered hydrOXYzine hydrochloride 25 mg oral tablet Start: 04/17/24 1:39:00 PM EDT, 1 tab, PO, qhs, Disp# 30 tab, Refills: 3, PRN: sleep, Pharmacy: [id number] Start Date: 04/17/24 Stop Date: 08/15/24 Status: Ordered irbesartan 300 mg oral tablet Start: 04/24/23 2:03:00 PM EDT, 1 tab, PO, Daily, Disp# 90 tab, Refills: 3, Pharmacy: [facility] Start Date: 04/24/23 Status: Ordered levETIRAcetam 500 mg oral tablet Start: 04/14/24 10:42:00 AM EDT, 60 tab, 0 Refill(s) Start Date: 04/14/24 Status: Ordered melatonin 3 mg oral tablet Start: 04/14/24 10:43:00 AM EDT, 1 tab, PO, qhs, PRN: Insomnia Start Date: 04/14/24 Status: Ordered miconazole 2% topical cream Start: 11/30/21 11:31:00 AM EDT, 1 appl, topical, bid, Disp# 30 g, Refills: 1, Pharmacy: [facility] Start Date: 11/30/21 Stop Date: 12/14/21 Status: Ordered mirtazapine 7.5 mg oral tablet Start: 03/24/24 1:48:00 PM EDT, 1 tab, PO, qhs Start Date: 03/24/24 Status: Ordered ondansetron 4 mg oral tablet, disintegrating Start: 04/14/24 10:42:00 AM EDT, 20 each, 0 Refill(s) Start Date: 04/14/24 Status: Ordered Plavix 75 mg oral tablet Start: 04/14/24 10:42:00 AM EDT, 75 mg =, PO, 0 Refill(s), Take 1 Tablet by mouth in the morning. Start Date: 04/14/24 Status: Ordered PreserVision AREDS 2 oral capsule Start: 03/01/20 3:17:00 PM EDT, 1 cap, PO, Daily Start Date: 03/01/20 Status: Ordered senna (sennosides) 8.6 mg oral tablet Start: 04/04/24 8:00:00 PM EDT, PO, 2 Unknown, 0 Refill(s), Take 2 Tablets by mouth daily as needed for Constipation. 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 [facility] Outpt Note * DO Toure Franklin J: MODIFY DO Toure Franklin J: MODIFY Event Display: FCM Outpt Note Authored Date: Chief Complaint Hypotension History of Present Illness 83 year old male presenting with concern for hypotension. provides the majority of HPI - has been on 300mg irbesartan for a number of years - recently blood pressure has been low - has BP checked a few times per week with home health and at radiation treatments - blood pressure at radiation earlier this week was 90s/60s so held irbesartan for the past 3 days - today with home health blood pressure 110s/60s - denies new lightheadedness, dizziness, orthostasis TeleHealth Visit Note I have confirmed the patients name and date of . The patient has consented to this service,and I have advised the patient that this is a billable visit for which they may be subject to a copay. [x ] The patient has initiated this visit after he/she was informed of the availability of telehealth for this medically necessary visit. [ _ ] The provider initiated this visit after explaining the need for this visit to the patient, who has consented to this virtual visit. I am located at my: [ x] Office [ _ ] Home [ _ ] Other: _ The patient is located at: [ x] Home [ _ ] Other: _ This visit was conducted via live audio/video technology: [x ] [facility] [ _ ] Zoom This visit was conducted via [ _ ] Telephone, and was not related to a visit or procedure that occurred within the past 7 days. Telephone Only Visit Reason for audio only visit was [ _ ] no internet connection available [ _ ] Other: _. Total time spent communicating with the patient:20 minutes Review of Systems As per above Physical Exam Nursing notes reviewed. No vital signs obtained. General: No Acute Distress. Speaking comfortably. Does not appear anxious. Respiratory: Good inspiratory effort, no use of accessory muscles. No increased work of breathing. Skin: No rash on visible, exposed areas. Assessment/Plan 1.Hypertension Chronic condition not at goal/exacerbated/progressive/side effects of treatment Goal: Resolve hypotension Data:_ Plan: Plan to continue to hold irbesartan. Will f/u with blood pressure readings next week. If significantly elevated prior to that will call office sooner. If elevated consider re-started irbesartan, perhaps as a lower dose. Attestation I also saw the patient on the telehealth visit and confirmed santa portions of the clinical history. I agree withholding the irbesartan; with the patient'scurrent conditionand significant weight loss,suspect he will no longer needas much antihypertensive medication, if any. Blood pressures to be monitored by home health. Patient's will reach out to us next week with a symptomupdate. I am with the impression and plan as notedin the resident documentation above. Problem List/Past Medical History Ongoing Arthritis of both feet Basal cell carcinoma BPH Callus Dry skin Fear of flying Generalized weakness Global amnesia Hearing impairment Hypertension Patient has active power of commercial real estate attorney for health care Serrated adenoma of colon Tailor's bunion of both feet Resolved Annual physical exam Benign essential HTN Colonoscopy Folliculitis Seborrheic keratoses Tick bite of neck Zoster vaccine Procedure/Surgical History Colonoscopy| Service Date: 09/12/2023Mohs micrographic surgery| Service Date: 12/26/2022Shave biopsy| Service Date: 11/08/2022ataract surgery| Service Date: 2018Colonoscopy| Service Date: 2012 Medications ALPRAZolam(ALPRAZolam 0.5 mg oral tablet, disintegrating), 0.25 mg= 0.5 tab, PO, Daily, PRN ciprofloxacin, 500, PO, bid clopidogrel(clopidogrel 75 mg oral tablet), 75 mg= 1 tab, PO, Daily, 3 refills clopidogrel(Plavix 75 mg oral tablet), 75 mg, PO dexAMETHasone(dexAMETHasone 2 mg oral tablet) dexAMETHasone(dexAMETHasone 2 mg oral tablet), See Instructions dexAMETHasone(dexAMETHasone 4 mg oral tablet), 4 mg= 1 tab dutasteride(dutasteride 0.5 mg oral capsule), See Instructions, 3 refills famotidine(famotidine 20 mg oral tablet) hydrOXYzine(hydrOXYzine hydrochloride 25 mg oral tablet), 25 mg= 1 tab, PO, qhs, PRN, 3 refills irbesartan(irbesartan 300 mg oral tablet), 300 mg= 1 tab, PO, Daily, 3 refills levETIRAcetam(levETIRAcetam 500 mg oral tablet) melatonin(melatonin 3 mg oral tablet), 3 mg= 1 tab, PO, qhs, PRN miconazole topical(miconazole 2% topical cream), 1 appl, topical, bid, 1 refills mirtazapine(mirtazapine 7.5 mg oral tablet), 7.5 mg= 1 tab, PO, qhs multivitamin with minerals(PreserVision AREDS 2 oral capsule), 1 cap, PO, Daily ondansetron(ondansetron 4 mg oral tablet, disintegrating) senna(senna (sennosides) 8.6 mg oral tablet), PO Allergies penicillinsunknown Social History Smoking Status Never [...] Due Adult Social Determinants of Health Screening due05/15/24Unknown Frequency Due In Future Body Mass Index not due until04/30/25and every Satisfied(in the past 1 year) Satisfied Adult COVID-19 Vaccination on05/21/23.Satisfied by JELENA Barba Angela Body Mass Index on04/29/24.Satisfied by JELENA Harper Kathryn Electronic Signature on File Electronically Reviewed/Signed by: Catalina Gonzalez DO Author Signature Dt/Tm:05/15/2024 09:10 PM Resident Department of Family Medicine Electronically Reviewed/Signed by: Gustavo Toure DO Cosigner Signature Dt/Tm: 05/16/2024 03:11 PM Department of Family Medicine CSN Patient Care team information Care Team Personnel Name: MD Angel, Robert Butts Position: Physician - Internal Med Member Role: Primary Care Provider Address: [address] [facility] [address] [place] [address] [place] Name: Cody Lindquist MD, Otis Position: Resident Member Role: Lifetime Relationship Address: [address] [facility] [address] [place] [address] Care Team Related Persons Name: ASHLYN ESPANA"
--- OUTSIDE RECORDS SUMMARY | 2024-06-11 21:22 | External Medical Summary | Continuity of Care Document ---
Author Name Unknown Organization [place] [address] [place] [phone] Care Team Providers Care Curriculum Specialist Name Role Phone AngelRobert wilson Benjamín Primary Care Physician [phone] Encounter [facility] [id number] Date(s): 04/29/24 - 04/29/24 [facility] [address] [facility] [address] [phone] Encounter Diagnosis UTI (urinary tract infection)(Discharge Diagnosis) - 04/29/24 Body mass index [BMI] 24.0-24.9, adult(Discharge Diagnosis) - 04/29/24 Incontinence(Discharge Diagnosis) - 04/29/24 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 Date:04/29/24 1.UTI (urinary tract infec tion) Acute, uncomplicated illness/injury Goal:Resolution Data:external notes reviewedincluding:ED note _ Plan: _ ED note and urine culture reviewed. Currently on Ciprofloxacin for UTI. Patient and family concerned that symptoms are not improving and incontinence happeneveryhour. Current symptoms may be secondary to infection or progression of brain tumor. Will switch antibiotic to Bactrim. Will restartthe patient on prednisone taperfor edema surrounding the brain tumor.Risk and benefits discussed with patient and family. Follow up with Romie/Onco in 1 week. Palliative appointment tomorrow. F/u as needed 2.Incontinence see above 3.Glioblastoma multiforme of brain see above Immunizations Given and Recorded Vaccine Date Status [...] 30 tab, Refills: 0, PRN: anxiety, Pharmacy: [facility] Start Date: 02/29/24 Status: Ordered Azithromycin 5 Day Dose Pack 250 mg oral tablet Start: 03/24/24 2:25:00 PM EDT, See Instructions, Disp# 6 tab, as directed on package labeling, Pharmacy: [facility] Start Date: 03/24/24 Status: Ordered Azithromycin 5 Day Dose Pack 250 mg oral tablet Start: 03/24/24 2:13:00 PM EDT, See Instructions, Disp# 6 tab, as directed on package labeling, Pharmacy: [facility] Start Date: 03/24/24 Status: Ordered Bactrim DS 800 mg-160 mg oral tablet Start: 04/29/24 3:36:00 PM EDT, trimethoprim 1 tab, PO, bid, Disp# 14 tab, [id number] Start Date: 04/29/24 Stop Date: 05/06/24 Status: Ordered ciprofloxacin Start: 04/29/24 2:43:00 PM EDT, 500, PO, bid Start Date: 04/29/24 Status: Ordered clopidogrel 75 mg oral tablet Start: 04/24/23 2:03:00 PM EDT, 1 tab, PO, Daily, Disp# 90 tab, Refills: 3, Pharmacy: [facility] Start Date: 04/24/23 Status: Ordered [...] day for 4 days, then stop, Pharmacy: [facility]/pharmacy #[id number] Start Date: 04/29/24 Status: Ordered dexAMETHasone 4 mg oral tablet Start: 03/24/24 1:49:00 PM EDT, 1 tab Start Date: 03/24/24 Status: Ordered dutasteride 0.5 mg oral capsule Start: 07/25/23 4:11:00 PM EST, See Instructions, Disp# 90 cap, Refills: 3, TAKE ONE CAPSULE BY MOUTH EVERY DAY, [facility] Start Date: 07/25/23 Status: Ordered famotidine 20 mg oral tablet Start: 04/14/24 10:42:00 AM EDT, 28 tab, 0 Refill(s) Start Date: 04/14/24 Status: Ordered hydrOXYzine hydrochloride 25 mg oral tablet Start: 04/17/24 1:39:00 PM EDT, 1 tab, PO, qhs, Disp# 30 tab, Refills: 3, PRN: sleep, Pharmacy: [id number] Start Date: 04/17/24 Stop Date: 08/15/24 Status: Ordered irbesartan 300 mg oral tablet Start: 04/24/23 2:03:00 PM EDT, 1 tab, PO, Daily, Disp# 90 tab, Refills: 3, Pharmacy: [facility] Start Date: 04/24/23 Status: Ordered [...] bid, Disp# 30 g, Refills: 1, Pharmacy: [facility] Start Date: 11/30/21 Stop Date: [...] for Constipation. Start Date: 04/04/24 Status: Ordered Mental Status 04/29/24 Barriers to Learning one year None evide nt Mandatory Health Literacy Documentation Yes Health Literacy Communication Barriers N ever Primary Language Omani Problem List Condition Confirmation Course Effective Dates Status Health St atus Informant Patient has active power of margarine maker for health care Confirmed Active Serrated adenoma [...] Effective Dates Health Status Clinical Service Informant UTI (urinary tract infection) Discharge Diagnosis 04/29/24 Non-Specified Glioblastoma multiforme of brain Discharge Diagnosis 04/29/24 Non-Specified Incontinence Discharge Diagnosis 04/29/24 Non-Specified Body mass index [BMI] 24.0-24.9, adult Discharge Diagnosis 04/29/24 Non-Specified Procedures Procedure Date Related Diagnosis Body [...] 3bilateral cataract surgery 4Repeat in 5 years Vital Signs Most recent to oldest [Reference Range]: 1 Height 172.8 cm (04/29/24 2:50 PM) Patient Weight 72.7 kg (04/29/24 2:50 PM) Body Mass Index 24.35 kg/m2 (04/29/24 2:50 PM) Temperature [36.5-37.9 DegC] 36.7 DegC (04/29/24 2:50 PM) Blood Pressure 118/74mmHg (04/29/24 2:50 PM) Social History Social History Type Response Tobacco Former smoker, Cigar ettes 1 Smoking Status Never smoked cigaret areli Sex Male Sex Representation Male (finding) 1Quit smoking 41 years ago. [facility] Outpt Note * DO Toure Franklin J: MODIFY DO Toure Franklin J: MODIFY Event Display: [facility]CM Outpt Note Authored Date: [id number] Chief Complaint UTI and L sided weakness also not eating History of Present Illness 83 y/o male w PMH of basal cell carcinoma, HTN,Glioblastoma multiforme here for a follow up UTI Patient presented to the ED after a fall on 04/23. Patient had a right sided weakness as well as increased incontinence Family refers increased of weakness of left upper extremities and worsening fatiguesince a week ago He was discharge from Ed with cefdinir witch was switch for ciprofloxacin with sensitivities of theculture Urine culture Escherichia coli ESBL + resistant to cephalosporins and penicillins Patient had been on treatment since 4 days and no changeon symptoms CT head in ED reviewed:Redemonstration of multiple intra-axial masses, predominantly within the right frontal lobe with associated vasogenic edema and mild mass effect. He follow with HemaOncology: plan for radiation treatment next week Palliative consult tomorrow Physical Exam Vitals & Measurements T:36.7C BP:118/74 SpO2:97% HT:172.8cm WT:72.700kg(Dosing) WT:72.7kg BMI:24.35 PHQ2 Data(Data Documented on:04/29/2024 14:45) Emotional health assessment NEGATIVE General: _Alert and oriented, No acute distress Cardiovascular: _Normal rate, Regular rhythm, No murmur, No gallop. Respiratory: _Lungs are clear to auscultation, Respirations are non-labored, Breath sounds are equal Psych: Mood-affect congruence. Reports no SI/HI. Speech is of normal pace and content Assessment/Plan 1.UTI (urinary tract infection) Acute, uncomplicated illness/injury Goal:Resolution Data:external notes reviewedincluding:ED note _ Plan: _ ED note and urine culture reviewed. Currently on Ciprofloxacin for UTI. Patient and family concerned that symptoms are not improving and incontinence happeneveryhour. Current symptoms maybe secondary to infection or progression of brain tumor. Will switch antibiotic to Bactrim. Will restartthe patient on prednisone taperfor edema surrounding the brain tumor.Risk and benefits discussed with patient and family. Follow up with Romie/Onco in 1 week. Palliative appointment tomorrow. F/u as needed 2.Incontinence see above 3.Glioblastoma multiforme of brain see above Attestation I also saw the patient confirmed santa portions of the clinical history and physical examination. Ialso reviewed outside records,including that of oncology andradiation oncology as well asimaging(CT of the brain, MRI of the brain). While the patient does have a urinary tract infection,I suspecthis symptoms are more related to the edemasurroundinghis glioblastoma. He was on steroids previously, but these were taperedand he completed them that a week ago, and there is at least a temporal relationto thetapering the steroids and his symptoms. Prednisone as noted. Will switch from ciprofloxacin to Bactrim, although note thatculture demonstratedsensitivity to bothagents. I also communicated our planwith the palliative care physicianwhom he is scheduled with tomorrow. Problem List/Past Medical History Ongoing Arthritis of both feet Basal cell carcinoma BPH Callus Dry skin Fear of flying Generalized weakness Global amnesia Hearing impairment Hypertension Patient has active power of margarine maker for health care Serrated adenoma of colon [...] 0.25 mg= 0.5 tab, PO, Daily, PRN azithromycin(Azithromycin 5 Day Dose Pack 250 mg oral tablet), See Instructions azithromycin(Azithromycin 5 Day Dose Pack 250 mg oral tablet), See Instructions ciprofloxacin, 500, PO, bid clopidogrel(clopidogrel 75 mg [...] senna(senna (sennosides) 8.6 mg oral tablet), PO sulfamethoxazole-trimethoprim(Bactrim DS 800 mg-160 mg oral tablet), 1 tab, PO, bid Allergies penicillinsunknown Social History Smoking Status Never [...] Due Adult Social Determinants of Health Screening due04/30/24Unknown Frequency Satisfied(in the past 1 year) Satisfied Adult COVID-19 Vaccination on05/21/23.Satisfied by JELENA Barba Angela Adult Influenza Vaccine on05/07/23.Satisfied by JELENA Barba Angela Body Mass Index on04/29/24.Satisfied by JELENA Harper Kathryn Electronic Signature on File Electronically Reviewed/Signed by: Otis Lindquist MD Author Signature Dt/Tm:04/30/2024 05:34 PM Resident Department of Family Medicine Electronically Reviewed/Signed by: DO Addis Fuentes Signature Dt/Tm: 05/01/2024 01:44PM Department of Family Medicine CR Patient Care team information Care Team Personnel Name: MD Angel, Robert Butts Position: Physician - Internal Med Member Role: Primary Care Provider Address: [address] [place] [address] [place] Care Team Related Persons Name: ASHLYN ESPANA"
[2024-06-12 07:20] LABS: Hematocrit (blood only) 37.7 % (42.0-52.0); Hemoglobin 13.2 g/dl (14.0-18.0); Mean Corpuscular Hemoglobin 31.2 pg (25.0-34.0); Mean Corpuscular Volume 89.1 fL (80.0-100.0); Mean Platelet Volume 9.1 fL (9.4-12.4); Platelet Count 278 K/uL (130-400); RDW Coefficient of Variation 15.3 % (11.5-14.5); RDW Standard Deviation 50.3 fL (36.4-46.3); Red Blood Count 4.23 M/uL (4.70-6.10); White Blood Count 9.53 K/ul (4.8-10.8)
[2024-06-12 07:36] LABS: BUN Creatinine Ratio 21.3 (10-20); Creatinine Clr Calc Pharmacy 70.1 ml/min; Potassium 3.9 mmol/L (3.5-5.1)
[2024-06-12] MEDS: dexAMETHasone 10 MG in SYRINGE 0 ML IV SCH (09:40)
--- NOTE | 2024-06-12 11:50 | Hospitalist Progress Note ---
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 Additional lesions detected posterolaterally within the right frontal lobe and in the left frontal operculum as above. - ER doctor discussed with Dr. Garfield Love, patient's oncologist with [facility] recommended MRI and IV Decadron - Admitting provider spoke with Dr. Dipak Love who stated patient will not be a candidate for further radiation at this time - continue Keppra - continue IV Decadron 10 mg daily - monitor on telemetry (2) BPH (benign prostatic hyperplasia): Plan: possible component of neurogenic bladder as well - continue home medications - dutasteride and tamsulosin - bladder scan and straight cath prn if scan >350 mL Family reports worsening incontience discussed option of nicolas for home with hospice. (3) Glioblastoma: Plan Chronic stable diagnoses: GERD - continue famotidine HTN - not on meds VTE ppx: Lovenox Q24h Dispo: continued inpatient stay, plan for home with hospice in the coming days Family updated at bedside 06/12 Admission and Anticipated Discharge Date Admission Date: June 11, 2024 Supervising Physician Co-Signing Physician Notes Attending Attestation - Chart reviewed, care plan d/w MICHAEL Cho. I agree w/ the santa components of her documentation. Calvin Schultz MD Subjective Patient seen sitting up in the chair, and daughter present at bedside. patient tells me he feels "terrific" Has slight movement of the left hand, able to squeeze my hand slightly. Good appetite. feels his voice is more hoarse. family reports they are active with [facility] and [facility] home health and are ready for hospice. 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 Results & Data Results & Data Vital Signs (Past 12 Hours) Vital Signs Temp Pulse Pulse Resp BP Pulse Ox Pulse Ox 06/12/24 11:34 98.1 F 101 H 16 117/78 97 06/12/24 10:18 06/12/24 08:03 95 H 06/12/24 07:56 97.7 F 97 H 18 124/74 98 06/12/24 03:30 97.9 F 98 H 19 130/81 96 06/12/24 00:55 80 06/12/24 00:12 95 O2 Del Method O2 Del Method 06/12/24 11:34 Room Air 06/12/24 10:18 Room Air 06/12/24 08:03 06/12/24 07:56 Room Air 06/12/24 03:30 Room Air 06/12/24 00:55 06/12/24 00:12 Room Air Laboratory Results CBC and chemistry reviewed Diagnostic Findings Brain MRI reviewed PG Care Time/CCT Total # of Minutes Spent Total Time Spent with Patient: Total time spent is greater than 50% in coordination of care (as documented) at patient's floor/unit and/or counseling patient: Coding Level of Care Code 72545 SUB INP/OBS CARE 3/50MIN Diagnoses Cerebral edema G93.6 BPH (benign prostatic hyperplasia) N40.0 Glioblastoma C71.9
[2024-06-12] MEDS ORDERED: ARTIFICIAL TEARS OPB PRN ×2 (18:30→20:23)
[2024-06-12] MEDS: MELATONIN 3 MG TAB PO PRN (20:08)
[2024-06-13] MEDS: LORazepam 0.5 MG TAB PO ONE (10:22)
[2024-06-13 11:55] VITALS: RESP 18
--- NOTE | 2024-06-13 13:40 | Hospitalist Progress Note ---
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 Additional lesions detected posterolaterally within the right frontal lobe and in the left frontal operculum as above. - ER doctor discussed with Dr. Garfield Love, patient's oncologist with [facility] recommended MRI and IV Decadron - Admitting provider spoke with Dr. Dipak Love who stated patient will not be a candidate for further radiation at this time - continue Keppra - continue IV Decadron 10 mg daily symptoms seem to be improving. melatonin scheduled to help with better sleep. (2) BPH (benign prostatic hyperplasia): Plan: possible component of neurogenic bladder as well - continue home medications - dutasteride and tamsulosin - bladder scan and straight cath prn if scan >350 mL Family reports worsening incontinence discussed option of nicolas for home with hospice. Also discussed option of condom catheter or urinal at discharge (3) Glioblastoma: Plan Chronic stable diagnoses: GERD - continue famotidine HTN - not on meds VTE ppx: Lovenox Q24h Dispo: continued inpatient stay, plan for home with hospice Tomorrow morning, stable for downgrade to medical Family updated at bedside 06/12 & 06/13 Admission and Anticipated Discharge Date Admission Date: June 11, 2024 Subjective patient seen earlier this morning. By the time I was able to see him he was alert and oriented, very pleasant. States that he had a lot of delusions overnight thought that he was being kidnapped. He apologizes for being rude or mean to the nursing staff. I discussed extensively with him and his the delusions, steroids can have the side effects but also delirium is very common in the hospital setting. For this reason I did encourage them to go home with hospice today as Morgan was able to walk a lap around the unit and doing very well physically. However would like more time to get things arranged and to have the hospice appointment delivered. telemetry sinus rhythm in the 60s to 80s Review of Systems Review of Systems: All systems reviewed & are unremarkable except as noted in Subjective Physical Exam Physical Exam: General: NAD, ill appearing, A&O x3 VS as above Resp: normal respiratory effort, lungs clear to auscultation CV: RRR, no murmur, Abd: normal bowel sounds, non tender, no hepatosplenomegaly Extremities: Much more movement of the left extremity able to raise arm at shoulder and bend at the elbow, still with limited expansion of fingers in the left hand Results & Data Results & Data Vital Signs (Past 12 Hours) Vital Signs Temp Pulse Resp BP Pulse Ox O2 Del Method 06/13/24 11:54 98.2 F 74 18 147/63 H 95 Room Air 06/13/24 09:30 Room Air 06/13/24 02:25 98.1 F 62 16 132/84 94 Room Air PG Care Time/CCT Total # of Minutes Spent Total Time Spent with Patient: Total time spent is greater than 50% in coordination of care (as documented) at patient's floor/unit and/or counseling patient: Coding Level of Care Code 78821 SUB INP/OBS CARE 2/35MIN Diagnoses Cerebral edema G93.6 BPH (benign prostatic hyperplasia) N40.0 Glioblastoma C71.9
[2024-06-13] MEDS: ACETAMINOPHEN 325 MG TAB PO PRN (20:38)
[2024-06-13] MEDS: MELATONIN 3 MG TAB PO SCH (21:08)
[2024-06-14 07:30] VITALS: BP 173/96; PULSE 79; TEMP 97.5; O2SAT 100
--- NOTE | 2024-06-14 09:35 | Discharge Summary ---
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 Additional lesions detected posterolaterally within the right frontal lobe and in the left frontal operculum as above. - ER doctor discussed with Dr. Garfield Love, patient's oncologist with [facility] recommended MRI and IV Decadron - Admitting provider spoke with Dr. Dipak Love who stated patient will not be a candidate for further radiation at this time - continue Keppra Patient and family agreeable for discharge with hospice * Discharged on steroid taper, patient has having some difficulty sleeping/delirium which can be partially attributed to the steroids. Discussed with patient and at bedside to continue taper and discussed with hospice team which dosing will be appropriate to minimize brain tumor symptoms and side effects. * Zyprexa, Ativan, morphine concentrate, Robinul and Tessalon Perles sent to the pharmacy until hospice can start care (2) BPH (benign prostatic hyperplasia): possible component of neurogenic bladder as well - continue home medications - dutasteride and tamsulosin Family reports worsening incontinence discussed option of nicolas for home with hospice - they have declined this. Supplies for condom cath and urinal provided (3) Glioblastoma: Plan Chronic stable diagnoses: GERD - continue famotidine HTN - not on meds dispo: Discharge home with hospice today Family updated at bedside 06/12 & 06/13 & 06/14 Notes For Next Care Provider initiated hospice care on discharge Admission HPI Per Admitting Provider Patient is an 83-year-old male with past medical history of glioblastoma s/p radiation and right frontal craniotomy, BPH, hypertension. Patient presents today due to left-sided weakness that has been ongoing for the past week. He also stated that he has had vision and a cough for the past few weeks. Patient's was seen with him at bedside. She provided most of his history as patient was tired. She stated that he had a brain biopsy 04/[address] Garfield Love at [facility], he has been doing well since the biopsy. He just finished radiation therapy 05/[address] Dipak Love from [facility]. About 1 week ago he started with left-sided weakness and it has progressively been getting worse since. Last night he was unable to ambulate by himself. She had to have a friend help him to the bedroom. She also stated that he has had some mild ankle swelling for the past few weeks. He has had home health with PT and OT weekly. he was to have an MRI on the . Patient denies fever, chills, headache, dizziness, lightheadedness, rhinorrhea, sore throat, dyspnea, dyspnea on exertion, chest pain, abdominal pain, nausea, vomiting, diarrhea, constipation, numbness, tingling. He lives at home with his . He does not smoke nicotine or drink alcohol. He denies past history of diabetes, VTE, clotting disorders, COPD, asthma, kidney disease. He does not use oxygen at baseline. He took all of his home medications this morning. He wishes to be DNR/DNI at this time. Discharge Exam General: NAD, ill appearing, but pleasant and in good spirits A&O x3 VS as above Resp: normal respiratory effort, CV: well perfused Abd: normal bowel sounds, non tender, no hepatosplenomegaly Extremities: Much more movement of the left extremity able to raise arm at shoulder and bend at the elbow, still with limited expansion of fingers in the left hand Discharge Plan Discharge Items Patient Disposition: Hospice - Home Reason For Visit: WEAKNESS, VASOGENIC EDEMA Discharge Diagnosis: Glioblastoma Activity: Resume your previous activity Weightbearing: Full weightbearing Non-emergency contact: Primary Care Provider Call non-emergency contact if: you have any medication questions and your symptoms worsen Follow-up/Referrals: Robert Ortiz MD [Primary Care Provider] - Diet: Regular Addtl Attending Provider Instructions: Mr. Mora You were hospitalized after having progressive one sided weakness. This was found to be from your tumor enlarging with local brain swelling. You were jaime ated with IV dexamethasone and thankfully your symptoms are improving. Given the prognosis, you and your family have opted for hospice care at home which is an excellent decision. We will continue your home medications. I have added oral dexamethasone to continue to hopefully continue to help with swelling. Take this in the morning. I have sent in 3 weeks of medication - work with your hospice agency to determine what your dose will be going forward. If at any time you feel like the medications are not helping or you are having difficulty swallowing - you can stop the medications at any time. I have also sent in some medications that are commonly used with hospice to have on hand, just incase symptoms are uncontrolled before the medications from hospice are delivered. - zyprexa - can be used at night to help sleep or with agitation - robinul can be used to help control excess secretions - morphine - can be use for pain, or air hunger - lorazepam (ativan) - can be used fo anxiety or agitation Going forward, your hospice agency should be your point person for all medical questions. You will not need to follow up with your PCP or oncologist anymore. If there is worsening or new symptoms, hospice will guide you through options and prescribed medications as needed. I hope you get to enjoy some quality time your family. Thank you for all you have done for the [facility] and medical community. Thank for allowing me to participate in your care! Jenny Cho PA-C Pending Studies at Discharge: No Stand-Alone Forms: My [facility] Medications and DC Order Prescriptions: New dexamethasone 6 mg tablet 6 mg PO DAILY Qty: 14 0RF Rx Instructions: take 1 tablet for 1 week, 1/2 tablet for 2 weeks glycopyrrolate [Robinul] 1 mg tablet 1 mg PO BID PRN (Reason: secretions) Qty: 10 0RF lorazepam [Ativan] 0.5 mg tablet 0.5 mg PO BID PRN (Reason: anxiety or agitation) Qty: 14 0RF olanzapine [Zyprexa] 5 mg tablet 5 mg PO HS PRN (Reason: insomnia or agitation ) Qty: 14 0RF benzonatate 100 mg capsule 100 mg PO TID PRN (Reason: cough) Qty: 20 0RF morphine concentrate 100 mg/5 mL (20 mg/mL) solution 5 mg PO Q3H PRN (Reason: pain or air hunger) Qty: 30 0RF Continued levetiracetam [Keppra] 500 mg tablet 500 mg PO BID melatonin 3 mg capsule 3 mg PO HS PRN (Reason: Sleep) dutasteride [Avodart] 0.5 mg Capsule 0.5 mg PO QPM PreserVision AREDS [id number] Tablet 1 tab PO BID famotidine 20 mg tablet 20 mg PO BID tamsulosin 0.4 mg capsule 0.4 mg PO HS Rx Instructions: per spouse, the medication isn't really working Discharge Orders: Discharge Order (Routine); Ordered 06/14/24 Ordered By: Jenny Krishna/Other Patient Handouts: Hospice- Caring for Your Loved One Admission Data Admit Date/Time: 06/11/24 12:44 Attending Provider: Calvin Schultz Admit Provider: Al Castillo Primary Care Provider: Robert Ortiz Other Providers: [facility],Home Healthcare; Al Castillo Other Interventions: Discharge Summary Assessment (RN) Last Done: 06/14/24 10:22 Hospital Stay Data Consultations 06/11/24 11:58 ED Decision to Admit Stat Diagnostic Imagining Performed Chest X-Ray 06/11/24 11:02 XR chest 1V portable HISTORY: 83 years-old Male weakness COMPARISON: 04/23/2024 TECHNIQUE: AP view of the chest FINDINGS: Cardiac silhouette is enlarged. No pneumothorax, pleural effusion or airspace consolidation. Bones appear grossly intact. IMPRESSION: No acute process ACT 112: Negative or not required by law. The above report was generated using voice recognition software. It may contain grammatical, syntax or spelling errors. Electronically signed by: Noah Guadarrama M.D. 06/11/2024 11:[address] 06/11/24 11:02 CT OF THE HEAD WITHOUT CONTRAST CLINICAL HISTORY: Altered mental status. Multifocal glioblastoma. COMPARISON STUDY: MRI of the brain March 18, 2024. Head CT April 23, 2024. CT DOSE: 625.8 mGy.cm TECHNIQUE: Helical axial images of the head were obtained without IV contrast. Automated exposure control was utilized for the study. A dose lowering technique was utilized adhering to the principles of ALARA. FINDINGS: No acute intracranial hemorrhage is present. A 3.3 x 2.1 cm oval- shaped hypodense focus within the right frontal lobe on image 22 of 32 favors a resection cavity. Edema within the right frontal lobe has increased in extent since CT of April 23, 2024. Mild mass effect with mild compression of the right lateral ventricle and minimal leftward midline shift is unchanged. The basal cisterns are patent. There is no evidence for herniation. A small hypodense focus within the left temporal lobe on image 18 of [address] has developed since prior CT. There are no findings to suggest acute dural sinus thrombosis or acute territorial infarct. Ventricular system is stable. There are no calvarial fractures. Right-sided craniotomy is unchanged in appearance. IMPRESSION: 1. No acute intracranial hemorrhage. 2. Status post right craniotomy with redemonstration of a right frontal resection cavity. Increase in right frontal lobe edema since prior head CT and interval development of hypodensity suggestive of vasogenic edema within the left temporal lobe. This interval change could represent disease progression however post treatment change could appear similar and continued imaging follow- up is recommended. No significant change in mass effect. ACT 112: Negative or not required by law. Electronically signed by: Pieter Calvo M.D. 06/11/2024 11:42 AM Brain MRI 06/11/24 12:00 MRI BRAIN WITH and WITHOUT CONTRAST TECHNIQUE: An MRI examination of the brain was performed utilizing sagittal and axial T1-weighted images as well as axial T2-weighted, FLAIR, gradient echo and diffusion-weighted images. Postcontrast T1-weighted images were also acquired in axial and sagittal planes. IV CONTRAST: 7.5 mL of Gadobuterol was intravenously administered. INDICATION: Headaches COMPARISON: CT brain April 23, 2024 FINDINGS: Centered in the right frontal lobe, there is a predominantly peripherally and heterogeneously enhancing intra-axial mass measuring up to 5.6 x 5.0 x 5.9 cm (AP x TV x CC) with medial extension across the midline to the left cerebral hemisphere frontal lobe. There is a small enhancing mass in the left frontal white matter just superiorly to the anterior horn of the left lateral ventricle measuring 1.5 cm which may represent medial extension of the dominant mass. Just posterolaterally to this dominant mass, there is a 1.4 cm peripherally enhancing lesion in the posterior right frontal lobe. There is diffusion restriction to this dominant mass. Also small component of intrinsically T1 hyperintense material and the susceptibility artifact noted There is an additional peripherally enhancing lesion in the left frontal operculum measuring 1.7 cm. There is appreciable vasogenic edema surrounding this finding with associate mass effect characterized by 1.0 cm leftward shifting of the midline structures. Partially effacement of the right lateral ventricle Prior right frontal craniotomy changes. The cerebellar tonsils are normal in position. The pituitary gland is not enlarged. The major arterial vascular structures of the skull base are patent. No intraorbital soft tissue mass lesion is observed. Cataract surgeries the visualized paranasal sinuses and mastoids are predominantly aerated. IMPRESSION: Large intra-axial mass centered in the right frontal lobe with aggressive features including appreciable vasogenic edema, predominantly peripheral and heterogeneous enhancement with suggested central necrosis and internal hemorrhage with crossing of the midline into the contralateral left frontal cerebrum. Additional lesions detected posterolaterally within the right frontal lobe and in the left frontal operculum as above. There is diffusion restriction to this dominant mass which suggests high cellularity. Superimposed infection/abscess not entirely excluded in the right clinical context. Please correlate with histological results however consideration may include glioblastoma multiforme. Less likely considerations may include a lymphoma as well as metastasis. Electronically signed by Rohan Espinoza 06-11-2024 4:45 PM Pending Results Patient Have Any Pending Studies at Discharge: No Discharge Instructions Given to Patient (Per Discharging Provider) Mr. Mora You were hospitalized after having progressive one sided weakness. This was found to be from your tumor enlarging with local brain swelling. You were treated with IV dexamethasone and thankfully your symptoms are improving. Given the prognosis, you and your family have opted for hospice care at home which is an excellent decision. We will continue your home medications. I have added oral dexamethasone to continue to hopefully continue to help with swelling. Take this in the morning. I have sent in 3 weeks of medication - work with your hospice agency to determine what your dose will be going forward. If at any time you feel like the medications are not helping or you are having difficulty swallowing - you can stop the medications at any time. I have also sent in some medications that are commonly used with hospice to have on hand, just incase symptoms are uncontrolled before the medications from hospice are delivered. - zyprexa - can be used at night to help sleep or with agitation - robinul can be used to help control excess secretions - morphine - can be use for pain, or air hunger - lorazepam (ativan) - can be used fo anxiety or agitation Going forward, your hospice agency should be your point person for all medical questions. You will not need to follow up with your PCP or oncologist anymore. If there is worsening or new symptoms, hospice will guide you through options and prescribed medications as needed. I hope you get to enjoy some quality time your family. Thank you for all you have done for the [facility] and medical community. Thank for allowing me to participate in your care! Jenny Cho PA-C Total Time Total Time Spent Total Time Spent (In Minutes): Time spent day of discharge 40 minutes including direct patient care, medication reconciliation, documentation, review of labs and images, and coordination of care. Coding Level of Care Code 03396 INP/OBS DISCH >30 MIN Diagnoses Cerebral edema G93.6 BPH (benign prostatic hyperplasia) N40.0 Glioblastoma C71.9
== END 2024-06-14 11:27 | disposition hospice, home (50) | DRG 54 ==
LOC: ED 10:48 → 2S 12:44 → SUATTDRO 12:44 → 2S 13:41 → 3W 06-13 14:10
DX: G93.5 Compression of brain; Z88.0 Allergy status to penicillin; Z92.3 Personal history of irradiation; G93.6 Cerebral edema; Z11.52 Encounter for screening for COVID-19; C31.9 Malignant neoplasm of accessory sinus, unspecified; I61.4 Nontraumatic intracerebral hemorrhage in cerebellum; K21.9 Gastro-esophageal reflux disease without esophagitis; Z79.899 Other long term (current) drug therapy; I10 Essential (primary) hypertension; C71.1 Malignant neoplasm of frontal lobe; N40.0 Benign prostatic hyperplasia without lower urinary tract symptoms; G81.94 Hemiplegia, unspecified affecting left nondominant side